=== PATIENT | female | born 1965 | race Caucasian/White ===

== ENCOUNTER → 2017-03-10 | Outpatient (CLI) | payer OTHER ==
[~2017-03-10] MED LIST: ALLEGRA180 MG PO; BENADRYL25 MG PO; CELEBREX200 MG PO; CYMBALTA60 MG PO; LEVOTHROID (S112 MCG PO; LIPITOR20 M1 PO; PERCOCET 5-3251 EACH PO; ULTRAM50 MG PO
== END | disposition disaster alternative care site (69) ==
LOC: GRAD 03-09 14:00
DX: M54.9 Dorsalgia, unspecified (principal); M47.896 Other spondylosis, lumbar region; M41.86 Other forms of scoliosis, lumbar region

== ENCOUNTER → 2017-03-12 | Day surgery (SDC) | payer OTHER ==
[~2017-03-12] VITALS: Ht 157.5 cm; Wt 63.5 kg
--- NOTE | ~2017-03-12 | OR ---
PATIENT'S NAME: OTONIEL FUENTES [facility] AGE: 52 Y [address] ROOM: [place] [address] LOCATION: [facility] [place] ADMIT DATE: 03/12/2017 OR/Procedure Report DISCHARGE DATE: FAMILY PHYSICIAN: Tr Hall MD ATTENDING PHYSICIAN: Sidra Rodney SURGEON: Prudencio Montez MD [employer] OPERATOR: DATE OF PROCEDURE: 03/12/2017 PROCEDURES PERFORMED: 1. Right sacroiliac joint injection. 2. Right L4-L5 transforaminal epidural steroid injection. INDICATIONS FOR PROCEDURE: The patient has had low back pain, degenerative lumbar disk disease with radiculopathy. Does have some facet arthropathy and mild foraminal stenosis. Also some SI joint arthropathy. The risk, benefits, and alternatives were explained to the patient and she wished to proceed. DESCRIPTION OF PROCEDURE: The patient was taken to the procedure room, placed in prone position. Back was prepped with Betadine x3. Sterile drapes were applied on outside. Fluoroscopy was used to identify the L4-L5 interspace and 3 mL of 1% lidocaine was used for numbing the skin. Next, under fluoroscopic guidance, a 22-gauge, 3-1/2 inch spinal needle was advanced into position. Once it was felt to be in position, 1 mL of contrast was injected in the lateral and AP views. It showed good epidural spread. No vascular uptake. No intrathecal uptake. Next, a mixture of 10 mg of preservative-free Decadron and 2 mL of 2% lidocaine were injected without complication. Stylette placed. Needle was withdrawn. Hemostasis was achieved. Fluoroscopy was then used to identify the right SI joint and the area was numbed with 2 mL of 1% lidocaine. Then, the 22-gauge spinal needle was advanced into position using fluoroscopic guidance. Once it was felt to be in good position, about 0.5 mL of contrast was injected and checked in the AP and lateral views. This showed a good SI joint arthrogram. A mixture of 40 mg of Depo-Medrol and 2 mL of 2% lidocaine were injected without complication. Stylette placed. Needle was withdrawn. Hemostasis was achieved. COMPLICATIONS: None. ESTIMATED BLOOD LOSS: None. PATIENT'S NAME: OTONIEL FUENTES [facility] AGE: 52 Y [address] ROOM: [place] [address] LOCATION: [facility] [place] ADMIT DATE: 03/12/2017 OR/Procedure Report DISCHARGE DATE: FAMILY PHYSICIAN: Tr Hall MD ATTENDING PHYSICIAN: Sidra Rodney N PRUDENCIO MONTEZ MD JJP/modl /[id number] d: 03/12/172149 t: 03/26/17 1423, OPERATIVE SUMMARY
== END | disposition disaster alternative care site (69) ==
LOC: GPOC 03-11 16:00 → GSDC 13:07 → GPOC 03-15 16:00
PROC: 3E0R3BZ Introduction of Anesthetic Agent into Spinal Canal, Percutaneous Approach (ICD-10-PCS; principal; 2017-03-12)
PROC: 3E0U33Z Introduction of Anti-inflammatory into Joints, Percutaneous Approach (ICD-10-PCS; 2017-03-12)
PROC: 3E0U3BZ Introduction of Anesthetic Agent into Joints, Percutaneous Approach (ICD-10-PCS; 2017-03-12)
DX: M54.5 Low back pain (principal); M25.551 Pain in right hip; M25.552 Pain in left hip; M51.16 Intervertebral disc disorders with radiculopathy, lumbar region; Z88.2 Allergy status to sulfonamides; Z79.899 Other long term (current) drug therapy; Z98.890 Other specified postprocedural states
CPT/HCPCS: J1030

== ENCOUNTER → 2017-04-15 | Day surgery (SDC) | payer OTHER ==
[~2017-04-15] VITALS: Ht 160 cm; Wt 61.4 kg
--- NOTE | ~2017-04-15 | OR ---
PATIENT'S NAME: OTONIEL FUENTES [facility] AGE: 52 Y [address] ROOM: [place] [address] LOCATION: [facility] [place] ADMIT DATE: 04/15/2017 OR/Procedure Report DISCHARGE DATE: FAMILY PHYSICIAN: Tr Hall MD ATTENDING PHYSICIAN: Sidra Rodney SURGEON: Prudencio Montez MD [employer]AFF: DATE OF PROCEDURE: 04/15/2017 PROCEDURE PERFORMED: Right sacroiliac joint injection. INDICATION: The patient with acute right SI joint pain. She has had SI joint injections in the past with good relief. Risks, benefits, and alternatives explained to the patient. She wished to proceed. DESCRIPTION OF PROCEDURE: She was taken to the procedure room and placed in the prone position. The right SI joint area was prepped with Betadine x3. Fluoroscopy was used to identify the right SI joint, and sterile drape applied over top. The skin was numbed with 3 mL of 1% lidocaine. Next, a 22-gauge spinal needle was advanced into position using fluoroscopic guidance. Once it was felt to be in good position, 0.5 mL of contrast was injected, showing good spread in the SI joint in the AP and lateral views. Then, a mixture of 2 mL of 0.25% bupivacaine and 40 mg of Depo-Medrol was injected without complications. The stylette placed and needle withdrawn. COMPLICATIONS: None. BLOOD LOSS: None. PRUDENCIO MONTEZ MD JJP/modl /[id number] d: 04/15/171900 t: 04/29/171657, OPERATIVE SUMMARY
== END | disposition disaster alternative care site (69) ==
LOC: GPOC 11:00 → GSDC 11:01
PROC: 3E0U33Z Introduction of Anti-inflammatory into Joints, Percutaneous Approach (ICD-10-PCS; principal; 2017-04-15)
PROC: 3E0U3BZ Introduction of Anesthetic Agent into Joints, Percutaneous Approach (ICD-10-PCS; principal; 2017-04-15)
DX: M53.3 Sacrococcygeal disorders, not elsewhere classified (principal)
CPT/HCPCS: J1030

== ENCOUNTER → 2017-04-16 | Outpatient (CLI) | payer OTHER | END | disposition disaster alternative care site (69) | LOC: GRAD 08:23 | DX: M51.36 Other intervertebral disc degeneration, lumbar region (principal); M47.896 Other spondylosis, lumbar region; M54.9 Dorsalgia, unspecified ==